=== PATIENT | female | born 1965 | race Caucasian/White ===

== ENCOUNTER 2016-10-30 17:00 | Emergency (ER) | payer OTHER | END 2016-10-30 20:20 | disposition home or self-care (01) | LOC: CED 17:00 | DX: H00.012 Hordeolum externum right lower eyelid (principal); I10 Essential (primary) hypertension; F17.210 Nicotine dependence, cigarettes, uncomplicated; Z88.2 Allergy status to sulfonamides; Z88.5 Allergy status to narcotic agent | CPT/HCPCS: 99283 ==